=== PATIENT | female | born 1985 | race African-American/Black ===

== ENCOUNTER 2018-01-03 11:19 | Outpatient (CLI) | payer OTHER | END 2018-01-10 | LOC: M SLEEP HO 01-10 08:00 | DX: R06.83 Snoring (principal); R40.0 Somnolence | CPT/HCPCS: G0399 ==

== ENCOUNTER → 2018-03-29 | Outpatient (CLI) | payer OTHER | LOC: M LAB 15:58 | DX: M32.13 Lung involvement in systemic lupus erythematosus (principal) | CPT/HCPCS: 71046 ==